=== PATIENT | male | born 1930 | race Caucasian/White ===

== ENCOUNTER → 2016-09-20 | Outpatient (CLI) | payer OTHER ==
[~2016-09-20] MED LIST: AMARYL; AMARYL PO; AMARYL1 MG PO; AMIODARONE PO; ASPIRIN; ASPIRIN81 M1 PO; ASPIRIN81 M2 PO; CINNAMON ALPHA1 EACH PO; COREG PO; COUMADIN PO; COUMADIN2.5 MG PO; COUMADIN5 MG PO; DIOVAN PO; DITROPAN-XL5 M1 PO; EYE CAPS PO; FERRO-TIME325 MG PO; FERROUS SULFATE PO; FISH OIL 1,0001 CAP PO; FLOMAX0.4 M1 PO; HYDRALAZINE HCL25 MG PO; IMDUR; IMDUR PO; ISORDIL10 MG PO; JANUMET; JANUVIA PO; LIPITOR PO; LISINOPRIL PO; LOPRESSOR PO; LOSARTAN POTASS50 MG PO; MOTION SICKNESS25 M5 PO; MULTI-VITAMIN1 TAB; MULTIVITAMINS1 EAC2 PO; PACERONE PO; PERCOCET5/325 PO; PLAVIX; PROBIOTIC1 EAC1 PO; PROBIOTIC1 EACH PO; ROBAXIN PO; SIMVASTATIN20 MG PO; SINGULAIR; SINGULAIR PO; TOPROL XL; VICODIN; VITAMIN D1000 UNIT PO; VYTORIN 10/40 T1 TAB; ZETIA; ZETIA PO; ZINC50 M1 PO; ZOCOR; ZOCOR PO; ZOCOR20 MG PO; [UNRECOGNIZED DRUG - OTHER] PO; [UNRECOGNIZED DRUG - OTHER] PO; [UNRECOGNIZED DRUG - OTHER] PO
--- NOTE | ~2016-09-20 | US37 ---
[facility] A Service of [facility] & [facility] RADIOLOGY TEXT RESULTS PATIENT: NATHANIEL DE LA ROSA LOCATION: CNIV : 32 UNIT #: [id number] AGE: [address]: ALAN MONTOYA APRN SEX: M ORDER DR: [id number] [facility] [address] [place], [place] [address] [id number] O MR#: [id number] Acc #: [id number] NAME: NATHANIEL DE LA ROSA : 1930 SEX: M STUDY DATE/TIME: 09/20/2016 9:26 UNIT: CNIV ROOM: STUDY DESCRIPTION: US Carotid W/Doppler Bilateral Attending Physician: Alan Montoya Aprn Referring Physician: Alan Montoya Aprn Ordering Physician: Alan Montoya Aprn Primary Care Physician: Renate Almendarez M.D. MEDICAL IMAGING REPORT This report is preliminary unless electronic signature is present EXAM Bilateral carotid Doppler. FINDINGS The right common carotid, internal carotid and external carotid arteries are patent with mild diffuse plaque throughout. Velocity of the common carotid artery is 58 cm per second. Peak systolic velocity of the right proximal internal carotid artery is 88 cm per second with an end-diastolic velocity of 25 cm per second, for an ICA to CCA ratio of 1.5. External carotid artery velocity 65 cm per second. The vertebral artery is visualized with antegrade flow. Left common carotid, internal carotid and external carotid arteries are patent with mild to moderate plaque noted diffusely throughout. Velocity of the common carotid artery is 66 cm per second. Systolic velocity of the left proximal internal carotid artery is 71 cm per second, with an end-diastolic velocity of 24 cm per second, for an ICA to CCA ratio of 1.08. External carotid artery velocity of 106 per second. The vertebral artery is visualized with antegrade flow. IMPRESSION 1. Less than 50% stenosis of the right and left internal carotid arteries. 2. No stenosis of the external carotid arteries. 3. Antegrade flow of the vertebral arteries. Dictated by... Abi Collins M.D. THIS IS AN ELECTRONICALLY VERIFIED REPORT Abi Collins M.D. at 09/25/2016 6:26 AM FPN/gz STS. [facility] A Service of [facility] & [facility] / [facility] RADIOLOGY TEXT RESULTS PATIENT: NATHANIEL DE LA ROSA LOCATION: [facility] : 31 UNIT #: [id number] AGE: [address]: ALAN MONTOYA COBBLER MCKAY SEX: M ORDER DR: TD: 09/23/2016 09:29 JOB #: [id number] MEDICAL IMAGING REPORT Page 1 of 1 COPY
--- NOTE | ~2016-09-20 | CT4 ---
[facility] A Service of [facility] & [facility] RADIOLOGY TEXT RESULTS PATIENT: NATHANIEL DE LA ROSA LOCATION: [facility] : 31 UNIT #: [id number] AGE: [address]: LALO MONTOYA APRN SEX: M ORDER DR: [id number] [facility] [address] [place], [place] [address] [id number] O MR#: [id number] Acc #: [id number] NAME: NATHANIEL DE LA ROSA. : 1930 SEX: M STUDY DATE/TIME: 09/20/2016 9:54 UNIT: CNIV ROOM: STUDY DESCRIPTION: CT Abd and Pelv Wo Cont Attending Physician: Lalo Montoya Aprn Referring Physician: Lalo Montoya Aprn Ordering Physician: Lalo Montoya Aprn Primary Care Physician: Renate Almendarez M.D. MEDICAL IMAGING REPORT This report is preliminary unless electronic signature is present EXAM CT abdomen and pelvis without contrast 09/20/2016 INDICATIONS Follow up abdominal aortic aneurysm. No current symptoms. PROCEDURE Unenhanced CT of the abdomen and pelvis. This CT exam was performed with one or more of the following radiation dose reduction techniques: automatic exposure control, adjustment of mA and/or kV according to patient size, and iterative reconstruction. COMPARISON 08/28/2015 FINDINGS VASCULAR: Patient is status post stent graft repair of an infrarenal abdominal aortic aneurysm. The aneurysm sac measures 3.9 x 3.8 cm, previously 4.1 x 3.9 cm. There is a moderate amount of atherosclerotic calcification abdominal aorta, including at the origin of the SMA. The major pelvic arteries are tortuous but have normal caliber. There is a stent in the left external iliac artery. ABDOMEN WITHOUT CONTRAST: Included lung bases clear. Liver, spleen, adrenal glands, pancreas and gallbladder have an unremarkable unenhanced appearance. There is a tiny nonobstructing calculus in the gallbladder. There is a 2.5 cm cyst in the right kidney. 1.2 cm exophytic cyst from the lower pole of the left kidney is stable. The bowel loops are nondilated, appendix is normal. PELVIS WITHOUT CONTRAST: No radiodense bladder calculus. No aggressive STS. [facility] A Service of [facility] & [facility] RADIOLOGY TEXT RESULTS PATIENT: NATHANIEL DE LA ROSA LOCATION: [facility] : [birth year] UNIT #: [id number] AGE: [address]: LALO MONTOYA SLAG WHEELER SEX: M ORDER DR: appearing bone lesion. IMPRESSION 1. Status post aortoiliac stenting. The aneurysm sac measures 3.9 x 3.8 cm which is stable to minimally smaller compared to the previous study. 2. No acute findings in the abdomen or pelvis. Dictated by... Jose Armando Hanson M.D. THIS IS AN ELECTRONICALLY VERIFIED REPORT Jose Armando Hanson M.D. at 09/23/2016 7:21 AM Iveth TD: 09/20/2016 17:58 JOB #: [id number] MEDICAL IMAGING REPORT COPY
--- NOTE | ~2016-09-20 | US10 ---
[id number] [facility] [address] [place], [place] [address] [id number] O MR#: [id number] Acc #: [id number] NAME: NATHANIEL DE LA ROSA : 1930 SEX: M STUDY DATE/TIME: 09/20/2016 9:15 UNIT: CNIV ROOM: STUDY DESCRIPTION: US Aorta Complete Attending Physician: Alan Armstrong Aprn Referring Physician: Alan Armstrong Aprn Ordering Physician: Alan Armstrong Aprn Primary Care Physician: Renate Almendarez M.D. MEDICAL IMAGING REPORT This report is preliminary unless electronic signature is present DATE OF EXAM 09/20/2016 EXAM Abdominal aortic ultrasound. HISTORY Infrarenal aortic aneurysm. History of infrarenal stent graft. FINDINGS B-mode imaging and color-flow Doppler imaging of the infrarenal aorta was performed showing a widely patent aorta and widely patent stent graft without evidence of color-flow outside of the stent grafts. The proximal infrarenal aorta was 2.0 cm, mid aorta 2.4 cm. The left iliac artery appears to be 1.2 cm and the right 1.1 cm. IMPRESSION Widely patent infrarenal aortic stent graft without evidence of endoleak and normal appearance of the iliac arteries bilaterally. Dictated by... Abi Collins M.D. THIS IS AN ELECTRONICALLY VERIFIED REPORT Abi Collins M.D. at 09/23/2016 7:30 AM SUSAN/santos TD: 09/20/2016 15:28 JOB #: [id number] MEDICAL IMAGING REPORT COPY
== END | disposition home or self-care (01) ==
LOC: CNIV 08:32
DX: I71.4 Abdominal aortic aneurysm, without rupture (principal); I65.23 Occlusion and stenosis of bilateral carotid arteries
CPT/HCPCS: 74176; 76770; 93880